=== PATIENT | male | born 1970 | race Caucasian/White ===

== ENCOUNTER 2016-12-18 22:42 | Emergency (ER) | payer BC ==
--- NOTE | ~2016-12-18 | ER ---
PATIENT'S NAME: MICHELLE IRWIN [facility] AGE: 46 Y [address] ROOM: [place] [address] LOCATION: [facility] ADMIT DATE: 12/18/2016 ER/Outpatient Report DISCHARGE DATE: FAMILY PHYSICIAN: Physician, Unknown ATTENDING PHYSICIAN: Yoselin Guerra HISTORY OF PRESENT ILLNESS: This is a 46-year-old male who is right-hand dominant, unknown tetanus status, who presents with a laceration to the 4th finger on the right hand over the proximal phalanx. The patient reports that he is visiting here from [place], from [place]. He is visiting his gpexwq-sn-sps and there, his dog and the vkakqz-sd-dxi's dogs were fighting and he tried to separate them and he got bit by his ribzvu-on-dbn's dog. The ndxktc-qx-hjc's dog is fully vaccinated. He has a 3/10 pain, this happened about 20 minutes ago. He denies any other complaints. PAST MEDICAL HISTORY: Environmental allergies. PAST SURGICAL HISTORY: ACL repair. SOCIAL HISTORY: Occasional alcohol, but does not smoke or use any drugs. MEDICATIONS: Some allergy medications. ALLERGIES: PENICILLIN. REVIEW OF SYSTEMS: Reviewed by me and negative with the exception of those discussed in HPI. PHYSICAL EXAMINATION: VITAL SIGNS: The patient is 6 feet tall, he is 84.6 kilos. Blood pressure 124/69, heart rate 74, respiratory rate 16, temperature is 96.5, and saturations are 95% on room air. GENERAL: The patient is not in any acute distress. He is alert, interactive, and speaking in full sentences. A and O x4. HEART: Heart rate is regular rate and rhythm. LUNGS: Lung sounds are clear. ABDOMEN: Soft, nontender, nondistended. EXTREMITIES: On one of his right fingers, he has a 2 cm mostly linear laceration on the dorsal part of the proximal phalanx. It does not appear PATIENT'S NAME: MICHELLE IRWIN [facility] AGE: 46 Y [address] ROOM: [place], [place] [address] LOCATION: [facility] ADMIT DATE: 12/18/2016 ER/Outpatient Report DISCHARGE DATE: FAMILY PHYSICIAN: Physician, Unknown ATTENDING PHYSICIAN: Guerra,Yoselin A contaminated. There is no obvious tendon injury. His strength on flexion and extension in that area is normal. Intact sensation of that finger as well. EMERGENCY ROOM COURSE: The wound was anesthetized with 2 mL of 1% lidocaine with epinephrine. After appropriate anesthesia had been achieved, it was thoroughly explored and cleaned, and I am unable to visualize any tendon injury. It does not appear contaminated. It was flushed out with 1 L of normal saline. Betadine also used. After cleaned it thoroughly, I placed 5 simple interrupted sutures using 4-0 Ethilon. The patient tolerated the procedure well. Given that this is a dog bite, we would put him on doxycycline as he is allergic to Augmentin. Gave him precautions for infection. He is from [place] and he will be back there in 7 days, so I asked that he follow up with his primary care doctor in 7 days there and have the sutures removed. He understands the reasons to go back to the ER sooner. IMPRESSION: Dog bite, finger laceration. MD CLEMENTE CAMARA/lucretia /[id number] d: 12/19/16 0108 t: 12/19/16 0407, OUTPATIENT REPORT
== END 2016-12-18 23:33 | disposition disaster alternative care site (69) ==
LOC: GACC 22:42
PROC: 0HQFXZZ Repair Right Hand Skin, External Approach (ICD-10-PCS; principal; 2016-12-18)
DX: S61.214A Laceration without foreign body of right ring finger without damage to nail, initial encounter (principal); Z88.0 Allergy status to penicillin; Z98.890 Other specified postprocedural states; W54.0XXA Bitten by dog, initial encounter